=== PATIENT | female | born 1995 | race Caucasian/White ===

== ENCOUNTER 2021-12-13 18:34 | Emergency (ER) | payer SELFPAY ==
[~2021-12-13] VITALS: Ht 160 cm; Wt 89.1 kg
[2021-12-13 19:15] VITALS: BP 112/90
[2021-12-13] MEDS ORDERED: CEPH-588 PO (19:26)
[2021-12-13] MEDS ORDERED: IBUP-1878 PO (19:26)
[2021-12-13] MEDS ORDERED: SULF-59 PO (19:26)
--- NOTE | 2021-12-13 19:32 | NUR ---
Dr. Hedrick examining patient.
--- NOTE | 2021-12-13 20:28 | NUR ---
Patient request a shot for pain before go home, Dr. Hedrick notified.
[2021-12-13] MEDS ORDERED: HYDROcodone/APAP 10/325 MG 1 TAB TAB PO ONE (20:30)
[2021-12-13] MEDS ORDERED: KETOROLAC 60 MG/2 ML VIAL IM ONE (20:35)
[2021-12-13 21:11] VITALS: BP 120/80
--- NOTE | 2021-12-13 21:11 | NUR ---
Patient discharged with v/s stable. Written and verbal after care instructions given and explained. Patient alert, oriented and verbalized understanding of instructions. Ambulatory with steady gait. All questions addressed prior to discharge. ID band removed. Patient advised to follow up with PMD. Rx of KEFLEX, IBUPROFEN, BACTRIM DS given. Patient educated on indication of medication including possible reaction and side effects. Opportunity to ask questions provided and answered.
== END 2021-12-13 21:11 | disposition home or self-care (01) ==
LOC: MED 18:34
DX: L02.31 Cutaneous abscess of buttock (principal); Z79.899 Other long term (current) drug therapy
CPT/HCPCS: 81025; 96372; 99283; J1885